=== PATIENT | male | born 2000 | race Two or more races ===

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

== ENCOUNTER 2021-11-30 10:50 | Emergency (ER) | payer OTHER ==
[2021-11-30 11:06] VITALS: BP 132/56; PULSE 75; RESP 18; TEMP 98.4; BMI 29.8
[2021-11-30] MEDS ORDERED: ACETAMINOPHEN 325 MG TABLET (FP) PO ONE (13:02)
== END 2021-11-30 13:20 | disposition home or self-care (01) ==
LOC: JER 10:50
DX: M77.31 Calcaneal spur, right foot (principal)
CPT/HCPCS: 73630-TC-RT-FY; 99283-25